=== PATIENT | female | born 1960 | race Caucasian/White ===

== ENCOUNTER 2018-01-20 00:31 | Emergency (ER) | payer BC, OTHER ==
[~2018-01-20] VITALS: Ht 160 cm; Wt 54.4 kg
[~2018-01-20 00:31] MED LIST: ATIVAN0.5 MG; ATIVAN0.5 MG PO; CARVEDILOL3.125 MG; CIPRO500 MG PO; CLIMARA PRO PA1 EACH; ESTRADIOL 1 MG T1 M1 TOP; ESTROGEL50 GM TOP; FLAGYL500 MG PO; LEVOTHYROXINE0.05 MG PO; LEVOXYL50 MCG; LINZESS72 MCG PO; ULTRAM 50MG TAB50 MG PO; VERAPAMIL ER120 M1 PO; VERAPAMIL HCL120 M1
[2018-01-20] MEDS ORDERED: CLINDAMYCIN HC150 MG PO (02:27)
[2018-01-20] MEDS ORDERED: NORCO 7.5-3251 EACH PO (02:27)
[2018-01-20 02:37] VITALS: BP 133/84
== END 2018-01-20 02:39 | disposition home or self-care (01) ==
LOC: M.ERS 00:31
DX: R51 Headache (principal); I10 Essential (primary) hypertension; E03.9 Hypothyroidism, unspecified; Z88.1 Allergy status to other antibiotic agents

== ENCOUNTER 2018-05-22 19:47 | Emergency (ER) | payer BC, OTHER ==
[~2018-05-22] VITALS: Ht 160 cm; Wt 56.7 kg
[~2018-05-22 19:47] MED LIST changes: +CLINDAMYCIN HC150 MG PO; +NORCO 7.5-3251 EACH PO
[2018-05-22] MEDS ORDERED: PROBIOTIC1 EAC1 PO (19:57)
[2018-05-22 20:17] LABS: ABSOLUTE BASOPHILS 0.1 thou/uL (0.0-0.2); ABSOLUTE EOSINOPHILS 0.2 thou/uL (0.0-0.7); ABSOLUTE LYMPHOCYTES 2.4 thou/uL (0.8-5.3); ABSOLUTE MONOCYTES 0.5 thou/uL (0.0-1.2); ABSOLUTE NEUTROPHILS 3.8 thou/uL (1.6-8.1); BASOPHILS 0.9 %; EOSINOPHILS 2.9 %; HEMATOCRIT 42.3 % (37.0-47.0); HEMOGLOBIN 14.5 gm/dL (12.0-15.0); LYMPHOCYTES 34.6 %; MCH 31.2 pg (26.0-34.0); MCHC 34.4 g/dL (28.0-37.0); MCV 90.7 fL (80.0-100.0); MONOCYTES 7.5 %; MPV 8.1 fl. (7.2-11.1); NUCLEATED RBCS 0 /100WBC; PLATELET COUNT* 197 thou/uL (150-400); POLYS 54.1 %; RBC 4.66 mil/uL (4.20-5.00); RDW-CV 13.3 % (10.5-14.5)
[2018-05-22 20:18] LABS: URINE BILIRUBIN NEGATIVE (Negative); URINE BLOOD NEGATIVE (Negative); URINE CLARITY CLEAR; URINE COLOR YELLOW; URINE GLUCOSE-RANDOM NEGATIVE (Negative); URINE KETONES NEGATIVE (Negative); URINE LEUKOCYTES-REFLEX NEGATIVE (Negative); URINE NITRITE-REFLEX NEGATIVE (Negative); URINE PROTEIN NEGATIVE (Negative); URINE UROBILINOGEN 0.2 E.U./dl (0.2-1.0)
[2018-05-22 20:28] LABS: ANION GAP 8 mmol/L (7-16); BUN 16 mg/dL (7-18); CALCIUM 9.4 mg/dL (8.5-10.1); CHLORIDE 104 mmol/L (98-107); CO2 29 mmol/L (21-32); CREATININE 0.8 mg/dL (0.6-1.3); GLUCOSE 107 mg/dL (70-99); POTASSIUM 3.6 mmol/L (3.5-5.1); SODIUM 141 mmol/L (136-145)
[2018-05-22 20:30] LABS: APTT 28.9 Seconds (25.0-31.3); PROTIME 10.4 Seconds (9.20-11.50)
[2018-05-22 20:39] LABS: ALKALINE PHOSPHATASE 73 U/L (46-116); NT-PRO BRAIN NAT PEPTIDE 66 pg/mL (<300); SGOT 23 U/L (15-37); SGPT 36 U/L (30-65); TOTAL BILIRUBIN 0.2 mg/dL (<0.1-1.0); TOTAL PROTEIN 7.5 g/dL (6.4-8.2); TROPONIN-I LEVEL <0.06 ng/mL (<0.06)
[2018-05-22 21:42] VITALS: BP 137/64
--- NOTE | 2018-05-23 16:35 | EKG ---
[place] [address] ELECTROCARDIOGRAM REPORT Name: KEEGAN PEREZ [id number] Admission: 05/22/18 Attend Phys: Discharge: 05/22/18 Date of : 58 Report #: [id number] THIS REPORT FOR: //name// [facility] ED Test Date: 2018-05-22 Test Time: 20:40:23 Pat Name: KEEGAN LUCASSUMEETFERNANDO Department: Room: Gender: F Md Allergy Immunology: MARIO : 1960 Requested By: Binu Stafford Order Number: [id number] MD: Nahid Baugh Measurements Intervals [place] Rate: 56 P: 36 VA: 154 QRS: 72 QRSD: 96 T: 51 QT: 427 QTc: 413 Interpretive Statements Sinus rhythm Compared to ECG 11/29/2016 11:12:44 Sinus bradycardia no longer present Electronically Signed On 05-23-2018 16:35:02 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
== END 2018-05-22 21:43 | disposition home or self-care (01) ==
LOC: M.ERS 19:47
PROVIDERS: Family Medicine
DX: R42 Dizziness and giddiness (principal); I10 Essential (primary) hypertension; E03.9 Hypothyroidism, unspecified; Z90.710 Acquired absence of both cervix and uterus; Z88.1 Allergy status to other antibiotic agents